=== PATIENT | male | born 1990 | race Caucasian/White ===

== ENCOUNTER 2017-05-01 19:51 | Emergency (ER) | payer OTHER ==
[~2017-05-01] VITALS: Ht 182.9 cm; Wt 104.3 kg
[2017-05-01 21:47] VITALS: BP 130/90
[2017-05-01] MEDS ORDERED: CYCLOBENZAPRINE HCL 10 MG TAB PO ONE (23:45)
[2017-05-01] MEDS ORDERED: IBUPROFEN 600 MG TAB PO ONE (23:45)
[2017-05-02] MEDS ORDERED: IBUPROFEN 600 MG TAB PO ONE
[2017-05-02] MEDS ORDERED: CYCLOBENZAPRINE HCL 10 MG TAB PO ONE
== END 2017-05-02 | disposition home or self-care (01) ==
LOC: ER 19:51
DX: M54.16 Radiculopathy, lumbar region (principal); M24.552 Contracture, left hip
CPT/HCPCS: 72131; 73700

== ENCOUNTER 2018-07-11 20:46 | Emergency (ER) | payer BC, OTHER ==
[~2018-07-11] VITALS: Ht 182.9 cm; Wt 108.9 kg
[2018-07-11] MEDS ORDERED: TETANUS-DIPTH-ACEL PERTUSSIS 0.5ML SYRG IM ONE (21:45)
[2018-07-11] MEDS ORDERED: AMOXICILLIN/CLAVUL 875 MG TAB PO ONE (22:00)
[2018-07-11] MEDS ORDERED: cefTRIAXone SOD 1,000 MG VL IM ONE (22:00)
[2018-07-11] MEDS ORDERED: methylPREDNISolone SOD SUCC 125 MG/2 ML VL IM ONE (22:15)
[2018-07-11 22:57] VITALS: BP 157/96
== END 2018-07-11 23:04 | disposition home or self-care (01) ==
LOC: ER 20:53
DX: S51.811A Laceration without foreign body of right forearm, initial encounter (principal); S51.831A Puncture wound without foreign body of right forearm, initial encounter; W54.0XXA Bitten by dog, initial encounter; Y93.89 Activity, other specified; Y92.89 Other specified places as the place of occurrence of the external cause; Y99.8 Other external cause status
CPT/HCPCS: 73090; 90471; 90715; 96372; 99283; J0696